=== PATIENT | male | born 1995 | race Caucasian/White ===

== ENCOUNTER → 2018-08-24 | Outpatient (CLI) | payer BC ==
[~2018-08-24] MED LIST: NO HOME MEDICATIONS
== END ==
LOC: COL.RAD 07:19
DX: R10.9 Unspecified abdominal pain (principal); R94.5 Abnormal results of liver function studies

== ENCOUNTER → 2018-12-21 | Outpatient (CLI) | payer BC | LOC: COL.RAD 09:46 | DX: R10.11 Right upper quadrant pain (principal) | CPT/HCPCS: A9537 ==

== ENCOUNTER 2022-01-13 10:48 | Emergency (ER) | payer BC ==
[~2022-01-13] VITALS: Ht 190.5 cm; Wt 86.4 kg
[2022-01-13 10:58] VITALS: TEMP 98.1
[2022-01-13 11:24] LABS: COLLECTION METHOD CLEAN CATCH
[2022-01-13 11:27] LABS: BASO % 0.5 % (0.0-2.0); EOS % 0.9 % (0.0-4.0); GRAN % 70.4 % (42.2-75.2); HEMOGLOBIN 15.8 g/dl (13.5-18.0); LYMPH # 0.9 K/mm3 (1.2-3.4); LYMPH % 21.7 % (20.0-51.0); MEAN CELL VOLUME 82 fl (80.0-100.0); MEAN CORPUSCULAR HEMOGLOBIN 29 pg (27-31); MEAN CORPUSCULAR HGB CONC 35 g/dl (33.0-37.0); MEAN PLATELET VOLUME 9.1 fl (7.4-10.4); MONO # 0.3 K/mm3 (0.1-0.6); MONO % 6.3 % (1.7-9.3); PLATELET COUNT 232 K/mm3 (130-400); RED BLOOD COUNT 5.48 M/mm3 (4.20-5.60); REDCELL DISTRIBUTION WIDTH-CV 12.3 % (11.5-14.5)
[2022-01-13 11:34] LABS: URINE APPEARANCE Cloudy (CLEAR/HAZY); URINE COLOR Yellow (YELLOW)
[2022-01-13 11:35] LABS: PH 8.5 (5.0-8.5); URINE BLOOD Negative (NEGATIVE); URINE GLUCOSE Negative (NEGATIVE); URINE KETONE Negative (NEGATIVE); URINE NITRATE Negative (NEGATIVE); URINE PROTEIN(semi-quant) Negative (NEGATIVE)
[2022-01-13 11:39] LABS: AMORPHOUS CRYSTAL Present (NOT PRESENT); MUCOUS Present (NOT PRESENT); SQUAMOUS EPITHELIAL 0-2 /hpf (0-10); URINE BACTERIA None Seen /hpf (NONE SEEN); URINE RBC 0-2 /hpf (0-2)
[2022-01-13 11:44] LABS: ALBUMIN 4.6 gm/dL (3.5-5.0); C-REACTIVE PROTEIN 0.07 mg/dL (0.00-0.50); CALCIUM 9.2 mg/dL (8.4-10.2); POTASSIUM 3.8 mmol/L (3.5-4.5); TOTAL PROTEIN 7.3 gm/dL (6.2-8.1)
[2022-01-13] MEDS ORDERED: PROTONIX 40MG T40 MG (12:23)
[2022-01-13 13:20] VITALS: BP 120/76; PULSE 68
== END 2022-01-13 13:21 | disposition home or self-care (01) ==
LOC: COL.ER 10:48
PROVIDERS: Family Medicine
DX: K20.90 Esophagitis, unspecified without bleeding (principal)
CPT/HCPCS: C9113; J2405; J7120